=== PATIENT | female | born 1960 | race Caucasian/White ===

== ENCOUNTER 2020-11-22 04:33 | Day surgery (SDC) | payer OTHER ==
[2020-11-20 16:49] VITALS: BMI 25.4
[2020-11-22] MEDS ORDERED: MIDAZOLAM HCL 2 MG/2 ML SINGLE DOSE VIAL ONE (13:48)
[2020-11-22] MEDS ORDERED: KETAMINE HCL 200 MG/20 ML VIAL ONE (13:48)
[2020-11-22] MEDS ORDERED: LIDOCAINE HCL 2% JELLY (5 ML/TUBE) ONE (13:52)
[2020-11-22] MEDS ORDERED: ONDANSETRON 4 MG/2 ML VIAL ONE (13:52)
[2020-11-22] MEDS ORDERED: ceFAZolin SODIUM 1 GM VIAL ONE (14:25)
[2020-11-22] MEDS ORDERED: ceFAZolin SODIUM 1 GM VIAL IVPB ONE (14:25)
[2020-11-22] MEDS ORDERED: ACETAMINOPHEN 1000 MG/100 ML VIAL (NON FORMULARY) IVPB ONE (14:56)
[2020-11-22] MEDS ORDERED: ONDANSETRON 4 MG/2 ML VIAL IVPUSH PRN (14:58)
[2020-11-22] MEDS ORDERED: IBUPROFEN 400 MG TABLET (FP) PO PRN (14:58)
[2020-11-22] MEDS ORDERED: ACETAMINOPHEN 325 MG TABLET (FP) PO PRN (14:58)
[2020-11-22] MEDS ORDERED: ACETAMINOPHEN INJECTION 100 ML IVPB ONE (15:27)
[2020-11-22 16:47] VITALS: BP 119/69; PULSE 57; TEMP 97.5
== END 2020-11-22 16:55 | disposition home or self-care (01) ==
LOC: JASU-SURG 04:33
PROVIDERS: ATTEND Obstetrics & Gynecology
PROC: 0UDB7ZX Extraction of Endometrium, Via Natural or Artificial Opening, Diagnostic (ICD-10-PCS; principal; 2020-11-22 13:30)
PROC: 0UJD8ZZ Inspection of Uterus and Cervix, Via Natural or Artificial Opening Endoscopic (ICD-10-PCS; 2020-11-22 13:30)
DX: N95.0 Postmenopausal bleeding (principal)
CPT/HCPCS: 88305-TC; 94760; J0131

== ENCOUNTER 2022-08-06 14:46 | Emergency (ER) | payer OTHER ==
[2022-08-06 15:03] VITALS: TEMP 98; BMI 23.9
[2022-08-06] MEDS ORDERED: MECLIZINE HCL 25 MG TABLET (FP) PO ONE (17:26)
[2022-08-06] MEDS ORDERED: MECLIZINE HCL 25 MG TABLET (FP) ONE (17:38)
[2022-08-06 18:02] LABS: BASO % 0.8 % (0-2.0); EOS % 1.1 % (0-4.5); HEMATOCRIT 40.1 % (32.4-45.2); LYMPH % 42.8 % (8-40); MCH 29.8 pg (25.7-33.7); MCHC 32.4 g/dl (32.0-36.0); MEAN CELL VOLUME 92.1 fl (80-96); MEAN PLT VOLUME 9.7 fl (7.5-11.1); MONO % 7.6 % (3.8-10.2); NEUT % 47.7 % (42.8-82.8); PLATELET COUNT 245 10^3/uL (134-434); RBC 4.36 M/mm3 (3.60-5.2); RDW 13.5 % (11.6-15.6); WHITE BLOOD COUNT 7.1 K/mm3 (4.0-10.0)
[2022-08-06 18:29] LABS: BLOOD UREA NITROGEN 12.1 mg/dL (7-18); CALCIUM 9.6 mg/dL (8.5-10.1)
[2022-08-06 18:33] LABS: CREATININE 0.6 mg/dL (0.55-1.3)
[2022-08-06 18:34] LABS: BILIRUBIN,TOTAL 0.8 mg/dL (0.2-1); TOT PROT 7.2 g/dl (6.4-8.2)
[2022-08-06 21:49] VITALS: BP 136/79; PULSE 73; RESP 20
== END 2022-08-06 21:47 | disposition home or self-care (01) ==
LOC: JER 14:46
DX: R42 Dizziness and giddiness (principal); R07.9 Chest pain, unspecified; R10.13 Epigastric pain
CPT/HCPCS: 0241U-QW; 36415; 71045-TC-FY; 80053; 84484; 85025; 93005; 93010; 99285-25